=== PATIENT | male | born 1960 | race Caucasian/White ===

== ENCOUNTER → 2024-06-11 | Day surgery (SDC) | payer BC, OTHER ==
[~2024-06-11] MED LIST: AMOXICILLIN500 MG PO; CARAFATE1 GM/10 ML PO; CRESTOR40 MG PO; DUPIXENT P200 MG/1.1 INJ; FELODIPINE ER5 MG PO; FENTANYL CITRATE/PF 100MCG/2 ML INJ ONE; LACTATED RINGER'S 1,000 ML ONE; LIDOCAINE HCL 2% LOCAL INJ 5 ML SDV VIAL INJ ONE; MIDAZOLAM HCL 2 MG/2 ML VIAL ONE; PANTOPRAZOLE SO40 MG PO; PROPOFOL IV EMULSION 10 MG/ML 20 ML VIAL ONE; ZESTRIL10 MG PO
[2024-06-11 10:11] VITALS: TEMP 98.4
[2024-06-11 10:40] VITALS: BP 135/87; PULSE 75; RESP 18; O2SAT 100
== END | disposition home or self-care (01) ==
LOC: ENDO 07:40 → EDSEX 08:30
PROVIDERS: ATTEND Internal Medicine Gastroenterology
DX: K22.2 Esophageal obstruction (principal); K21.9 Gastro-esophageal reflux disease without esophagitis; R11.2 Nausea with vomiting, unspecified; I10 Essential (primary) hypertension; E78.5 Hyperlipidemia, unspecified; F10.11 Alcohol abuse, in remission; F17.200 Nicotine dependence, unspecified, uncomplicated; Z01.810 Encounter for preprocedural cardiovascular examination; Z79.899 Other long term (current) drug therapy
CPT/HCPCS: 43249; 93005; J2003; J2250; J2704; J3010; J7121; 43450